=== PATIENT | male | born 1965 | race Caucasian/White ===

== ENCOUNTER 2021-04-14 10:46 | Emergency (ER) | payer OTHER, MEDICARE ==
[2021-04-14 10:58] VITALS: RESP 18
--- NOTE | 2021-04-14 11:48 | ED ---
Psych HPI - General Source: patient, RN notes reviewed Mode of arrival: ambulatory - History of Present Illness MD Complaint: other <Bertin Mckenna - Last Filed: 04/14/21 15:46> <Ronald Kennedy - Last Filed: 04/14/21 19:04> <Ronald Gamboa - Last Filed: 04/15/21 04:55> - General Chief Complaint: Psychiatric Symptoms Stated Complaint: mental health Time Seen by Provider: 04/14/21 11:02 - History of Present Illness Initial Comments: This is a 55-year-old male who was brought in by appropriately. No trauma reported no fevers chills nausea vomiting sweats [facility] on a pickup order from [facility] for psychiatric evaluation the patient has been hallucinating leaving messages on his counselor's voicemail that he was committed suicide not acting (Bertin Mckenna) - Related Data Home Medications Medication Instructions Recorded Confirmed Famotidine [Pepcid] 20 mg PO DAILY 04/14/21 04/14/21 Methylphenidate HCl [Ritalin] 20 mg PO TID 04/14/21 04/14/21 atenoloL [Atenolol] 25 mg PO BID 04/14/21 04/14/21 lisinopriL [Zestril] 20 mg PO DAILY 04/14/21 04/14/21 Allergies Allergy/AdvReac Type Severity Reaction Status Date / Time azithromycin Allergy Unknown Verified 04/14/21 13:34 erythromycin base Allergy Unknown Verified 04/14/21 13:34 ketorolac [From Toradol] Allergy Unknown Verified 04/14/21 13:34 Barbiturates AdvReac Unknown Verified 04/14/21 13:34 Review of Systems ROS Other: All systems not noted in ROS Statement are negative. <Bertin Mckenna - Last Filed: 04/14/21 15:46> ROS Other: All systems not noted in ROS Statement are negative. <Ronald Kennedy - Last Filed: 04/14/21 19:04> ROS Other: All systems not noted in ROS Statement are negative. <Ronald Gamboa - Last Filed: 04/15/21 04:55> ROS Statement: Those systems with pertinent positive or pertinent negative responses have been documented in the HPI. Past Medical History Past Medical History: COPD, GERD/Reflux, Hypertension History of Any Multi-Drug Resistant Organisms: None Reported Past Surgical History: Hernia Repair Additional Past Surgical History / Comment(s): neck surgery x4 Past Psychological History: ADD/ADHD Smoking Status: Current every day smoker Past Alcohol Use History: Occasional Past Drug Use History: Cocaine, Marijuana, Methamphetamine <Bertin Mckenna - Last Filed: 04/14/21 15:46> General Exam Limitations: no limitations General appearance: alert, anxious Head exam: Present: other (No evidence of trauma the patient does have evidence of makeup around his eyes.) Eye exam: Present: normal appearance, PERRL, EOMI. Absent: scleral icterus, conjunctival injection, periorbital swelling ENT exam: Present: normal exam, mucous membranes moist Neck exam: Present: normal inspection. Absent: tenderness, meningismus, lymphadenopathy Respiratory exam: Present: normal lung sounds bilaterally. Absent: respiratory distress, wheezes, rales, rhonchi, stridor Cardiovascular Exam: Present: regular rate, normal rhythm, normal heart sounds. Absent: systolic murmur, diastolic murmur, rubs, gallop, clicks GI/Abdominal exam: Present: soft, normal bowel sounds. Absent: distended, tenderness, guarding, rebound, rigid Extremities exam: Present: normal inspection, full ROM, normal capillary refill, other (Nail israeli on all fingernails). Absent: tenderness, pedal edema, joint swelling, calf tenderness Back exam: Present: normal inspection Neurological exam: Present: alert, oriented X3, CN II-XII intact Psychiatric exam: Present: normal mood, manic, other (Flight of ideas) Skin exam: Present: warm, dry, intact, normal color. Absent: rash <Bertin Mckenna - Last Filed: 04/14/21 15:46> - General Exam Comments Initial Comments: This is a well-developed well-nourished awake alert anxious male demonstrates a flight of ideas. (Bertin Mckenna) Course <Bertin Mckenna - Last Filed: 04/14/21 15:46> Vital Signs 04/14/21 04/14/21 04/15/21 10:47 15:35 01:42 Temperature 99.6 F 97.6 F Pulse Rate 100 80 96 Respiratory 18 18 18 Rate Blood Pressure 172/81 129/98 133/88 O2 Sat by Pulse 94 L 95 97 Oximetry - Reevaluation(s) Reevaluation #1: 04/14/21 15:34 The patient refuses a urine drug screen this time he will consent to blood draw. The patient is to be evaluated by the EPS service. Potential for transfer to the [facility]. I did review the paperwork I did provide a clinical certification. (Bertin Mckenna) Medical Decision Making - Lab Data Result diagrams: 04/14/21 15:35 <Bertin Mckenna - Last Filed: 04/14/21 15:46> - Lab Data Result diagrams: 04/14/21 15:35 04/14/21 15:35 <Ronald Kennedy - Last Filed: 04/14/21 19:04> - Lab Data Result diagrams: 04/14/21 15:35 04/14/21 15:35 <Ronald Gamboa - Last Filed: 04/15/21 04:55> - Medical Decision Making 55 male with acute psychosis, patient deemed necessary for inpatient psychiatric evaluation and treatment. EMS is here for transport (Ronald Gamboa) - Lab Data Lab Results 04/14/21 04/14/21 04/14/21 Range/Units 15:35 15:35 15:35 WBC 14.5 H (3.8-10.6) k/uL RBC 4.47 (4.30-5.90) m/uL Hgb 14.1 (13.0-17.5) gm/dL Hct 41.5 (39.0-53.0) % MCV 92.9 (80.0-100.0) fL MCH 31.5 (25.0-35.0) pg MCHC 33.9 (31.0-37.0) g/dL RDW 12.8 (11.5-15.5) % Plt Count 398 (150-450) k/uL MPV 6.7 Neutrophils % 70 % Lymphocytes % 21 % Monocytes % 5 % Eosinophils % 2 % Basophils % 1 % Neutrophils # 10.2 H (1.3-7.7) k/uL Lymphocytes # 3.0 (1.0-4.8) k/uL Monocytes # 0.7 (0-1.0) k/uL Eosinophils # 0.3 (0-0.7) k/uL Basophils # 0.1 (0-0.2) k/uL Sodium 137 (137-145) mmol/L Potassium 4.2 (3.5-5.1) mmol/L Chloride 103 (98-107) mmol/L Carbon Dioxide 24 (22-30) mmol/L Anion Gap 10 mmol/L BUN 19 (9-20) mg/dL Creatinine 1.02 (0.66-1.25) mg/dL Est GFR (CKD-EPI)AfAm >90 (>60 ml/min/1.73 sqM) Est GFR (CKD-EPI)NonAf 81 (>60 ml/min/1.73 sqM) Glucose 104 H (74-99) mg/dL Calcium 9.8 (8.4-10.2) mg/dL Magnesium 2.1 (1.6-2.3) mg/dL Total Bilirubin 0.5 (0.2-1.3) mg/dL AST 28 (17-59) U/L ALT 14 (4-49) U/L Alkaline Phosphatase 81 (38-126) U/L Creatine Kinase 101 (55-170) U/L Total Protein 7.8 (6.3-8.2) g/dL Albumin 4.7 (3.5-5.0) g/dL Serum Alcohol <10 mg/dL Coronavirus (PCR) Not Detected (Not Detectd) Disposition <Bertin Mckenna - Last Filed: 04/14/21 15:46> <Ronald Kennedy - Last Filed: 04/14/21 19:04> Is patient prescribed a controlled substance at d/c from ED?: No <Ronald Gamboa - Last Filed: 04/15/21 04:55> Clinical Impression: Acute psychosis Disposition: TRANSFER TO PSYCH HOSP/UNIT Condition: Fair Referrals: None,Stated [Primary Care Provider] - 1-2 days
[2021-04-14 15:39] LABS: Basophils # (A) 0.1 k/uL (0-0.2); Basophils % (A) 1 %; Eosinophils # (A) 0.3 k/uL (0-0.7); Eosinophils % (A) 2 %; HCT 41.5 % (39.0-53.0); HGB 14.1 gm/dL (13.0-17.5); Lymphocytes % (A) 21 %; MCH 31.5 pg (25.0-35.0); MCHC 33.9 g/dL (31.0-37.0); MCV 92.9 fL (80.0-100.0); Mean Platelet Volume 6.7; Monocytes # (A) 0.7 k/uL (0-1.0); Monocytes % (A) 5 %; Neutrophils # (A) 10.2 k/uL (1.3-7.7); Neutrophils % (A) 70 %; Platelet Count 398 k/uL (150-450); RBC 4.47 m/uL (4.30-5.90); RDW 12.8 % (11.5-15.5); WBC 14.5 k/uL (3.8-10.6)
[2021-04-14 15:49] LABS: ALT 14 U/L (4-49); AST 28 U/L (17-59); African American GFR (CKD) >90 (>60 ml/min/1.73 sqM); Albumin 4.7 g/dL (3.5-5.0); Alcohol <10 mg/dL; Alkaline Phosphatase 81 U/L (38-126); Anion Gap 10 mmol/L; Blood Urea Nitrogen 19 mg/dL (9-20); Calcium 9.8 mg/dL (8.4-10.2); Carbon Dioxide 24 mmol/L (22-30); Chloride 103 mmol/L (98-107); Creatine Kinase 101 U/L (55-170); Glucose 104 mg/dL (74-99); Magnesium 2.1 mg/dL (1.6-2.3); Non-African American GFR(CKD) 81 (>60 ml/min/1.73 sqM); Potassium 4.2 mmol/L (3.5-5.1); Sodium 137 mmol/L (137-145); Total Bilirubin 0.5 mg/dL (0.2-1.3); Total Protein 7.8 g/dL (6.3-8.2)
[2021-04-14] MEDS ORDERED: ACETAMINOPHEN TAB 500 MG TAB PO STA (16:16)
[2021-04-15 05:18] VITALS: BP 143/85; PULSE 84; TEMP 97.8
[2021-04-15 16:10] LABS: Serum Amphetamine Negative; Serum Barbiturates Negative; Serum Benzodiazepine Negative; Serum Cocaine Negative; Serum Methadone Negative; Serum Opiates Negative; Serum Phencyclidine Negative; Serum Propoxyphene Negative; Serum THC (Cannabis) Positive
== END 2021-04-15 05:17 ==
LOC: EC 10:46
DX: F23 Brief psychotic disorder (principal); I10 Essential (primary) hypertension; J44.9 Chronic obstructive pulmonary disease, unspecified; K21.9 Gastro-esophageal reflux disease without esophagitis; F90.9 Attention-deficit hyperactivity disorder, unspecified type; F17.200 Nicotine dependence, unspecified, uncomplicated; F14.90 Cocaine use, unspecified, uncomplicated; F12.90 Cannabis use, unspecified, uncomplicated; F15.90 Other stimulant use, unspecified, uncomplicated; Z20.822 Contact with and (suspected) exposure to COVID-19
CPT/HCPCS: 36415; 80053; 80307; 80320; 82075; 82550; 83735; 85025; 87635; 99285